=== PATIENT | female | born 1975 | race Caucasian/White ===

== ENCOUNTER 2016-10-17 10:03 | Day surgery (SDC) | payer BC ==
[~2016-10-17 10:03] MED LIST: Ciprofloxacin/Dexamethasone 0.3-0.1% Otic Susp 7.5 ML Bottle ONE; EPINEPHrine 1:1000 1 MG/ML SDV ONE; Lactated Ringers 1,000 ML IV SCH; Lidocaine 2% 5 ML SDV ONE; Midazolam 1 MG/ML 2 ML SDV ONE; Propofol 200 MG/20 ML SDV ONE; fentaNYL 100 MCG/2 ML SDV ONE
[2016-10-17] MEDS ORDERED: Lidocaine 2% with EPINEPHrine 1:100,000 20 ML MDV ONE (11:48)
--- NOTE | 2016-10-17 12:22 | PCM.PREANE ---
Preanesthetic Assessment - Anesthesia/Transfusion/Family Hx Anesthesia History: Prior Anesthesia Without Reaction Transfusion History: No Prior Transfusion(s) Intubation History: Unknown - Review of Systems General: No Symptoms Pulmonary: No Symptoms Cardiovascular: No Symptoms Gastrointestinal: No symptoms Neurological: No Symptoms Other: Reports: None - Physical Assessment NPO Status Date: 10/16/16 NPO Status Time: 20:30 O2 Sat by Pulse Oximetry: 98 Respiratory Rate: 16 Vital Signs: Last Vital Signs Temp 98.8 F 10/17/16 10:15 Pulse 67 10/17/16 10:15 Resp 16 10/17/16 10:15 BP 117/80 10/17/16 10:15 Pulse Ox 98 10/17/16 10:15 Height: 4 ft 11 in Weight: 119 lb ASA Class: 1 Mental Status: Alert & Oriented x3 Airway Class: Mallampati = 2 Dentition: Reports: Normal Dentition Thyro-Mental Finger Breadths: 3 Mouth Opening Finger Breadths: 3 ROM/Head Extension: Full Lungs: Clear to auscultation, Normal respiratory effort Cardiovascular: Regular Rate, Regular Rhythm, No Murmurs - Lab Values: Laboratory Last Values Urine HCG, Qual NEGATIVE (NEGATIVE) 10/17/16 10:09 - Allergies Allergies/Adverse Reactions: Allergies Allergy/AdvReac Type Severity Reaction Status Date / Time No Known Allergies Allergy Verified 10/12/16 14:14 - Blood Blood Available: No - Acknowledgements Anesthesia Type Planned: MAC (local by surgeon) Pt an Appropriate Candidate for the Planned Anesthesia: Yes Alternatives and Risks of Anesthesia Discussed w Pt/Guardian: Yes Pt/Guardian Understands and Agrees with Anesthesia Plan: Yes PreAnesthesia Questionnaire HEENT History: Other HEENT History: wears glasses Cardiovascular History: Reports: None Respiratory History: Reports: None Gastrointestinal History: Reports: None Genitourinary History: Reports: None REGULATORY ASSISTANT History: Reports: Musculoskeletal History: Reports: Fracture Other Musculoskeletal History: hx of fx arm Neurological History: Reports: None Psychiatric History: Reports: Anxiety, Depression Endocrine/Metabolic History: Reports: None Hematologic History: Reports: None Immunologic History: Reports: None Oncologic (Cancer) History: Reports: None Dermatologic History: Reports: None - Past Surgical History Head Surgeries/Procedures: Reports: None HEENT Surgical History: Reports: Tonsillectomy Cardiovascular Surgical History: Reports: None Respiratory Surgical History: Reports: None GI Surgical History: Reports: None Female Surgical History: Reports: Section Neurological Surgical History: Reports: None Musculoskeletal Surgical History: Reports: None Oncologic Surgical History: Reports: None Dermatological Surgical History: Reports: None - SUBSTANCE USE Smoking Status *Q: Never Smoker Recreational Drug Use History: No - HOME MEDS Home Medications: Home Meds Sertraline HCl 100 mg PO DAILY 08/24/16 [History] buPROPion HCl [Wellbutrin SR] 150 mg PO BID 08/24/16 [History] - CURRENT (IN HOUSE) MEDS Current Meds: Current Medications Lactated Ringer's (Ringers, Lactated) 1,000 mls @ 125 mls/hr IV ASDIRECTED IVONE Last Admin: 10/17/16 10:37 Dose: 125 mls/hr Discontinued Medications Ciprofloxacin/Dexamethasone (Ciprodex Otic Susp) Confirm Administered Dose 7.5 ml .ROUTE .STK-MED ONE Stop: 10/17/16 07:31 Epinephrine HCl (Adrenalin 1:1000) Confirm Administered Dose 2 mg .ROUTE .STK- MED ONE Stop: 10/17/16 07:31 Fentanyl (Sublimaze) Confirm Administered Dose 100 mcg .ROUTE .STK-MED ONE Stop: 08/29/16 07:29 Lactated Ringer's (Ringers, Lactated) 1,000 mls @ 125 mls/hr IV ASDIRECTED [facility] Lidocaine (Xylocaine-Mpf 2%) Confirm Administered Dose 5 ml .ROUTE .STK-MED ONE Stop: 08/29/16 07:29 Lidocaine/Epinephrine (Xylocaine 2% With Epinephrine 1:100,000) Confirm Administered Dose 20 ml .ROUTE .STK-MED ONE Stop: 10/17/16 11:49 Midazolam HCl (Versed 1 Mg/Ml) Confirm Administered Dose 2 mg .ROUTE .STK-MED ONE Stop: 08/29/16 07:29 Propofol (Diprivan 20 Ml) Confirm Administered Dose 200 mg .ROUTE .STK-MED ONE Stop: 08/29/16 07:29
[2016-10-17] MEDS ORDERED: Ondansetron 4 MG/2 ML SDV ONE (12:48)
[2016-10-17] MEDS ORDERED: fentaNYL 100 MCG/2 ML SDV ONE (12:48)
[2016-10-17] MEDS ORDERED: Propofol 200 MG/20 ML SDV ONE (12:48)
[2016-10-17] MEDS ORDERED: Midazolam 1 MG/ML 2 ML SDV ONE (12:48)
--- NOTE | 2016-10-17 14:19 | PCM.POSTAN ---
POST ANESTHESIA ASSESSMENT - MENTAL STATUS Mental Status: alert, oriented - RESPIRATORY Respiratory Status: respiratory rate WNL, airway patent, O2 saturation stable - CARDIOVASCULAR CV Status: pulse rate WNL, blood pressure stable - GASTROINTESTINAL GI Status: no symptoms - PAIN Pain Score: 0 - POST OP HYDRATION Hydration Status: adequate & stable
[2016-10-17 15:21] VITALS: BP 120/72
--- NOTE | 2016-10-17 16:04 | PCM48HPAN ---
Post Anesthesia Note - EVALUATION WITHIN 48HRS OF ANESTHETIC Vital Signs in Normal Range: Yes Patient Participated in Evaluation: Yes Respiratory Function Stable: Yes Airway Patent: Yes Cardiovascular Function Stable: Yes Hydration Status Stable: Yes Pain Control Satisfactory: Yes Nausea and Vomiting Control Satisfactory: Yes Mental Status Recovered: Yes
--- NOTE | 2016-10-17 16:23 | PCM.OPNOTE ---
- General Post-Op/Procedure Note Date of Surgery/Procedure: 10/17/16 Anesthesia Technique: MAC, Moderate sedation Primary Surgeon: Alyssa Valle Anesthesia Provider: Pee Ryder Pathology: Lesion Left ear Fluid Replacement, Intraop: 600 EBL in mLs: 5 Condition: Good Free Text/Narrative:: Intake & Output 10/17/16 10/17/16 10/17/16 06:59 14:59 22:59 Intake Total 3500 Balance 3500 Diagnosis: Lesion Left external auditory canal Procedure: Excision of Left external audiotry canal lesion [ CPT 66535] Surgeon: Alyssa Valle MD Indications: Presented to my office with left ear lesion which was noticed by the PCP on clinical exam; when seen by me she had a papillary lesion - approx 4 mm X 4mm on the anterior canal wall - 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 She consented for the procedure today. Findings: A papillary lesion - approx 4 mm X 4mm on the anterior canal wall. Operation Details: An informed consent was obtained. A time out was performed and the patient was brought back to the operating room. Sedation was administered by the anesthesia team (see separate anesthesia note for details). Part was prepped and draped in a standard style fashion. 1 cc of 2% lidocaine with 1: 100,000 epinephrine was injected around the lesion. Microscope was brought into the field. An appropriately sized ear speculum was placed. The lesion was circumferentially incised with the [address] [place] blade the further dissection was performed with a #11 blade the specimen was removed intact. Hemostasis was achieved first with a cotton wool wall soaked in 1:1000 epinephrine. Bipolar cautery was then used at a setting of 10 W to cauterize the base of the lesion. Bacitracin ointment was placed over the wound. The ear canal was totally suctioned clear of all blood pediatric was placed in the. A cotton wool was placed in the nuria. This concluded the procedure and the patient was handed over to anesthesia. Follow up: In 2 days
== END 2016-10-17 14:35 | disposition home or self-care (01) ==
LOC: MW.SDS 10:03
PROVIDERS: ATTEND Otolaryngology
DX: D23.22 Other benign neoplasm of skin of left ear and external auricular canal (principal)
CPT/HCPCS: 69145; 81025; 88305; J0171; J2250; J2405; J3010; J7120; 00120; A9270-GY; J2704

== ENCOUNTER 2022-03-08 06:35 | Day surgery (SDC) | payer BC ==
[2022-03-08] MEDS ORDERED: Lactated Ringers 1,000 ML IV SCH (07:00)
[2022-03-08] MEDS ORDERED: Morphine 2 MG/ML SYRINGE IVPUSH PRN (07:19)
[2022-03-08] MEDS ORDERED: Naloxone 0.4 MG/ML SDV IVPUSH PRN (07:19)
[2022-03-08] MEDS ORDERED: Albuterol 0.083% 2.5 MG/3 ML Neb Soln NEB PRN (07:19)
[2022-03-08] MEDS ORDERED: HYDROmorphone 1 MG/ML Syringe IVPUSH PRN (07:19)
[2022-03-08] MEDS ORDERED: Ondansetron 4 MG/2 ML SDV IVPUSH PRN (07:19)
[2022-03-08] MEDS ORDERED: Metoclopramide 10 MG/2 ML SDV IVPUSH PRN (07:19)
[2022-03-08] MEDS ORDERED: fentaNYL 50 MCG/ML SDV IVPUSH PRN (07:19)
[2022-03-08] MEDS ORDERED: Bupivacaine 0.5% 30 ML SDV ONE ×2 (07:22→07:52)
[2022-03-08] MEDS ORDERED: Dexmedetomidine 200 MCG/2 ML SDV ONE ×2 (07:25→07:35)
[2022-03-08] MEDS ORDERED: Midazolam 1 MG/ML 2 ML SDV ONE (07:25)
[2022-03-08] MEDS ORDERED: Propofol 200 MG/20 ML SDV ONE (07:25)
[2022-03-08] MEDS ORDERED: fentaNYL 100 MCG/2 ML SDV ONE ×2 (07:25→12:18)
[2022-03-08] MEDS ORDERED: Ondansetron 4 MG/2 ML SDV ONE (07:35)
[2022-03-08] MEDS ORDERED: Lidocaine 2% 5 ML SDV ONE (07:35)
[2022-03-08] MEDS ORDERED: Ketorolac 30 MG/ML SDV ONE (07:35)
[2022-03-08] MEDS ORDERED: Dexamethasone 4 MG/ML 5 ML MDV ONE (07:35)
[2022-03-08] MEDS ORDERED: Water For Injection, Sterile 20 ML ONE (07:37)
[2022-03-08] MEDS ORDERED: Lidocaine 2% 11 ML Jelly Filled Syringe ONE (07:41)
[2022-03-08] MEDS ORDERED: Lidocaine 1% 20 ML MDV ONE (07:52)
[2022-03-08] MEDS ORDERED: ceFAZolin 2 GM in Premix Bag 1 BAG IV ONE (08:00)
[2022-03-08] MEDS ORDERED: ceFAZolin 1 GM Vial ONE (08:26)
[2022-03-08] MEDS ORDERED: ePHEDrine 50 MG/ML SDV ONE (08:46)
[2022-03-08] MEDS ORDERED: Glycopyrrolate 0.2 MG/ML SDV ONE (11:36)
[2022-03-08] MEDS ORDERED: Bacitracin Oint 28.35 GM Tube ONE (12:21)
[2022-03-08 15:00] VITALS: BP 125/81; PULSE 87
== END 2022-03-08 14:45 | disposition home or self-care (01) ==
LOC: MW.SDS 06:35
PROVIDERS: ATTEND Podiatrist Foot & Ankle Surgery
DX: M20.11 Hallux valgus (acquired), right foot (principal); M20.41 Other hammer toe(s) (acquired), right foot; F41.9 Anxiety disorder, unspecified; F32.A Depression, unspecified; G43.909 Migraine, unspecified, not intractable, without status migrainosus; Z79.899 Other long term (current) drug therapy; Z87.891 Personal history of nicotine dependence; Z98.890 Other specified postprocedural states; Z79.82 Long term (current) use of aspirin
CPT/HCPCS: 28285; 29827; 81025; A9270; J0690; J1100; J1885; J2250; J2405; J2704; J3010; J3490; J7120; 01480

== ENCOUNTER 2022-12-06 06:31 | Day surgery (SDC) | payer BC ==
[2022-12-06] MEDS ORDERED: Lactated Ringers 1,000 ML IV SCH (07:00)
[2022-12-06] MEDS ORDERED: Scopolamine 1.5 MG Transdermal Patch TRDERM PRN (07:29)
[2022-12-06] MEDS ORDERED: Scopolamine 1.5 MG Transdermal Patch ONE (07:34)
[2022-12-06] MEDS ORDERED: Lidocaine 2% 5 ML SDV ONE (07:36)
[2022-12-06] MEDS ORDERED: Ondansetron 4 MG/2 ML SDV ONE ×2 (07:36→11:56)
[2022-12-06] MEDS ORDERED: Rocuronium Bromide 50 MG/5 ML Syringe ONE (07:36)
[2022-12-06] MEDS ORDERED: Sugammadex Sodium 200 MG/2 ML VIAL ONE (07:36)
[2022-12-06] MEDS ORDERED: Propofol 200 MG/20 ML SDV ONE ×4 (07:36→11:27)
[2022-12-06] MEDS ORDERED: Ketorolac 30 MG/ML SDV ONE (07:36)
[2022-12-06] MEDS ORDERED: Dexamethasone 4 MG/ML 5 ML MDV ONE (07:36)
[2022-12-06] MEDS ORDERED: fentaNYL 100 MCG/2 ML SDV ONE (07:36)
[2022-12-06] MEDS ORDERED: Bupivacaine 0.5% 30 ML SDV ONE (07:39)
[2022-12-06] MEDS ORDERED: propofoL 100 ML ONE (07:41)
[2022-12-06] MEDS ORDERED: ceFAZolin 2 GM in Sodium Chloride 0.9% 50 ML IV ONE (08:00)
[2022-12-06] MEDS ORDERED: ceFAZolin 1 GM Vial ONE (08:26)
[2022-12-06] MEDS ORDERED: Labetalol 100 MG/20 ML MDV ONE (09:06)
[2022-12-06] MEDS ORDERED: hydrALAZINE 20 MG/ML SDV ONE (09:53)
[2022-12-06 12:29] VITALS: PULSE 78
[2022-12-06 14:30] VITALS: BP 128/80
== END 2022-12-06 14:20 | disposition home or self-care (01) ==
LOC: MW.SDS 06:31
PROVIDERS: ATTEND Podiatrist Foot & Ankle Surgery
DX: M20.42 Other hammer toe(s) (acquired), left foot (principal); M20.12 Hallux valgus (acquired), left foot; M21.172 Varus deformity, not elsewhere classified, left ankle; F41.9 Anxiety disorder, unspecified; F32.A Depression, unspecified; Z79.899 Other long term (current) drug therapy; Z98.890 Other specified postprocedural states; Z87.891 Personal history of nicotine dependence
CPT/HCPCS: 28285; 28297; 81025; A9270; C1713; J0131; J0360; J0690; J1100; J1885; J2405; J2704; J3010; J3490; J7120